=== PATIENT | female | born 1940 | race Caucasian/White ===

== ENCOUNTER 2017-03-23 07:52 | Day surgery (SDC) | payer OTHER ==
[~2017-03-23] VITALS: Ht 165.1 cm; Wt 79.8 kg
[~2017-03-23 07:52] MED LIST: ACYC800 PO; ALEN70 PO; AMLO5 PO; ASPI81EC PO; BETA.05TC TOP; CELE200 PO; CHOL10002 PO; CIPR500 PO; DILT30; DISO100ER PO; DOCU100 PO; DULO30 PO; DULO60 PO; Flagyl500 MG PO; HYDACE25S PR; HYDACE5 PO; L-LYSINE500 MG; LORA10ER PO; METO100ER PO; METO25ER PO; METO50 PO; MINO50 PO; Multiple Vitam1 EAC1 PO; Norco 5-325 Ta1 EACH PO; OMEP40CA12 PO; PRAV20 PO; PROM25 PO; Protonix40 M1 PO; RXCLIN PO; SERT50 PO; VICODIN 5-3001 EACH PO
== END 2017-03-23 10:40 | disposition home or self-care (01) ==
LOC: ORSCSDS 07:52
PROVIDERS: Internal Medicine Gastroenterology
PROC: 0DB68ZX Excision of Stomach, Via Natural or Artificial Opening Endoscopic, Diagnostic (ICD-10-PCS; principal; 2017-03-23 09:30)
DX: R93.3 Abnormal findings on diagnostic imaging of other parts of digestive tract (principal); K31.7 Polyp of stomach and duodenum; K26.9 Duodenal ulcer, unspecified as acute or chronic, without hemorrhage or perforation; K75.81 Nonalcoholic steatohepatitis (NASH); Z80.0 Family history of malignant neoplasm of digestive organs; I10 Essential (primary) hypertension; K21.9 Gastro-esophageal reflux disease without esophagitis; F41.8 Other specified anxiety disorders; E78.5 Hyperlipidemia, unspecified; Z79.82 Long term (current) use of aspirin; Z87.891 Personal history of nicotine dependence; Z79.899 Other long term (current) drug therapy
CPT/HCPCS: 88305; 88342; J7120

== ENCOUNTER → 2017-04-28 | Outpatient (CLI) | payer OTHER ==
[~2017-04-28] MED LIST changes: +Percocet 5-3251 EACH PO
[2017-04-29 17:50] LABS: Protein, Urine Quantitative 14.9 mg/dL (0.0-11.9)
== END ==
LOC: LAB 14:00
PROVIDERS: Internal Medicine Nephrology
DX: N18.3 Chronic kidney disease, stage 3 (moderate) (principal); D63.1 Anemia in chronic kidney disease; N25.81 Secondary hyperparathyroidism of renal origin; E55.9 Vitamin D deficiency, unspecified; E78.00 Pure hypercholesterolemia, unspecified; R76.9 Abnormal immunological finding in serum, unspecified; R94.5 Abnormal results of liver function studies
CPT/HCPCS: 81050; 82043; 84156

== ENCOUNTER 2017-07-06 08:00 | Day surgery (SDC) | payer OTHER ==
[~2017-07-06] VITALS: Ht 162.6 cm; Wt 84.1 kg
[~2017-07-06 08:00] MED LIST changes: -Percocet 5-3251 EACH PO
== END 2017-07-06 10:04 | disposition home or self-care (01) ==
LOC: ORSCSDS 08:00
PROVIDERS: Internal Medicine Gastroenterology
PROC: 0DJD8ZZ Inspection of Lower Intestinal Tract, Via Natural or Artificial Opening Endoscopic (ICD-10-PCS; principal; 2017-07-06 09:15)
DX: Z12.11 Encounter for screening for malignant neoplasm of colon (principal); K64.4 Residual hemorrhoidal skin tags; K64.8 Other hemorrhoids; Z80.0 Family history of malignant neoplasm of digestive organs; I10 Essential (primary) hypertension; E78.5 Hyperlipidemia, unspecified; F41.8 Other specified anxiety disorders; K75.81 Nonalcoholic steatohepatitis (NASH); E78.00 Pure hypercholesterolemia, unspecified; Z87.891 Personal history of nicotine dependence; Z79.82 Long term (current) use of aspirin; Z79.899 Other long term (current) drug therapy
CPT/HCPCS: J0330; J1980; J2405; J7120

== ENCOUNTER 2017-09-27 06:06 | Observation (INO) | payer OTHER ==
[~2017-09-27] VITALS: Ht 162.6 cm; Wt 87.1 kg
[2017-09-27 13:26] LABS: PCO2 Arterial 44.2 mmHg (35-45); PO2 Arterial 69.7 mmHg (80-100)
[2017-09-28 05:40] LABS: BASOPHILS ABSOLUTE AUTO 0.02 K/mm3 (0.00-0.23); BASOPHILS PERCENT AUTO 0 % (0-2); EOSINOPHILS ABSOLUTE AUTO 0.01 K/mm3 (0.00-0.68); EOSINOPHILS PERCENT AUTO 0 % (0-6); Hematocrit 38.7 % (33.0-51.0); Hemoglobin 12.9 g/dL (11.5-16.0); IMMATURE GRAN ABSOLUTE AUTO 0.04 K/mm3 (0.00-0.10); IMMATURE GRAN PERCENT AUTO 0 % (0-1); LYMPHOCYTES ABSOLUTE AUTO 2.76 K/mm3 (0.84-5.20); LYMPHOCYTES PERCENT AUTO 20 % (21-46); MONOCYTES ABSOLUTE AUTO 0.65 K/mm3 (0.16-1.47); MONOCYTES PERCENT AUTO 5 % (4-13); Mean Corpuscular HGB 30.6 pg (26.0-34.0); Mean Corpuscular HGB Conc 33.3 g/dL (31.5-36.5); Mean Corpuscular Volume 92 fL (80-100); Mean Platelet Volume 9.6 fL (9.1-12.4); NEUTROPHILS ABSOLUTE AUTO 10.11 K/mm3 (1.96-9.15); NEUTROPHILS PERCENT AUTO 74 % (41-73); Platelet Count 220 K/mm3 (150-400); RDW Coefficient Variation 12.8 % (11.7-14.2); RDW Standard Deviation 42.9 fL (35.1-46.3); Red Blood Cell Count 4.21 M/mm3 (3.80-5.20); White Blood Cell Count 13.59 K/mm3 (4.00-11.30)
[2017-09-28 06:02] LABS: Anion Gap 7 mmol/L (6-16); Blood Urea Nitrogen 15 mg/dL (8-24); Bun/Creatinine Ratio 20.6 (12.0-20.0); CO2, Blood 30 mmol/L (21-32); Calcium, Blood 9.2 mg/dL (8.5-10.1); Chloride, Blood 101 mmol/L (98-108); Creatinine, Blood 0.73 mg/dL (0.40-1.00); Glomerular Filtration Rate >60 (60-); Glucose, Blood 108 mg/dL (70-99); Potassium, Blood 4.2 mmol/L (3.5-5.5); Sodium, Blood 138 mmol/L (136-145)
[2017-09-28] MEDS ORDERED: Percocet 5-3251 EACH PO (08:06)
== END 2017-09-28 10:00 | disposition home or self-care (01) ==
LOC: ORSCSDS 06:06 → SURS 14:03 → ORSCSDS 14:03 → SURS 15:01
PROVIDERS: Anesthesiology; Hospitalist; Orthopaedic Surgery
PROC: 0RBJ4ZZ Excision of Right Shoulder Joint, Percutaneous Endoscopic Approach (ICD-10-PCS; principal; 2017-09-27 07:30)
PROC: 0RNJ4ZZ Release Right Shoulder Joint, Percutaneous Endoscopic Approach (ICD-10-PCS; principal; 2017-09-27 07:30)
DX: M75.111 Incomplete rotator cuff tear or rupture of right shoulder, not specified as traumatic (principal); M75.41 Impingement syndrome of right shoulder; M19.011 Primary osteoarthritis, right shoulder; M24.011 Loose body in right shoulder; E78.5 Hyperlipidemia, unspecified; I10 Essential (primary) hypertension; M81.0 Age-related osteoporosis without current pathological fracture; K21.9 Gastro-esophageal reflux disease without esophagitis; F32.9 Major depressive disorder, single episode, unspecified; F41.9 Anxiety disorder, unspecified; E66.9 Obesity, unspecified; E78.00 Pure hypercholesterolemia, unspecified; Z87.891 Personal history of nicotine dependence; Z88.0 Allergy status to penicillin; Z88.5 Allergy status to narcotic agent; Z88.8 Allergy status to other drugs, medicaments and biological substances; Z79.82 Long term (current) use of aspirin; Z79.899 Other long term (current) drug therapy
CPT/HCPCS: 36415; 36600; 71046; 80048; 82803; 85025; 94640; 94760; G0378; J0330; J1100; J2250; J2405; J2710; J3010; J3370; J7120

== ENCOUNTER 2018-04-27 21:17 | Emergency (ER) | payer OTHER ==
[~2018-04-27] VITALS: Ht 162.6 cm; Wt 86.2 kg
[~2018-04-27 21:17] MED LIST changes: +Percocet 5-3251 EACH PO
[2018-04-27 21:59] LABS: BASOPHILS PERCENT AUTO 1 % (0-2); EOSINOPHILS PERCENT AUTO 1 % (0-6); Hematocrit 45.9 % (33.0-51.0); Hemoglobin 15.2 g/dL (11.5-16.0); IMMATURE GRAN ABSOLUTE AUTO 0.05 K/mm3 (0.00-0.10); IMMATURE GRAN PERCENT AUTO 0 % (0-1); LYMPHOCYTES ABSOLUTE AUTO 3.99 K/mm3 (0.84-5.20); LYMPHOCYTES PERCENT AUTO 26 % (21-46); MONOCYTES ABSOLUTE AUTO 0.71 K/mm3 (0.16-1.47); MONOCYTES PERCENT AUTO 5 % (4-13); Mean Corpuscular HGB 30.3 pg (26.0-34.0); Mean Corpuscular HGB Conc 33.1 g/dL (31.5-36.5); Mean Corpuscular Volume 91 fL (80-100); Mean Platelet Volume 9.3 fL (9.1-12.4); NEUTROPHILS ABSOLUTE AUTO 10.47 K/mm3 (1.96-9.15); NEUTROPHILS PERCENT AUTO 68 % (41-73); Platelet Count 291 K/mm3 (150-400); RDW Coefficient Variation 13.2 % (11.7-14.2); RDW Standard Deviation 44.7 fL (35.1-46.3); Red Blood Cell Count 5.02 M/mm3 (3.80-5.20); White Blood Cell Count 15.42 K/mm3 (4.00-11.30)
[2018-04-27 22:22] LABS: Alanine Aminotransfer (ALT/SGP 19 U/L (12-78); Albumin, Blood 3.7 g/dL (3.4-5.0); Albumin/Globulin Ratio 0.9 (0.8-1.8); Alk Phos 100 U/L (50-136); Anion Gap 8 mmol/L (6-16); Aspartate Aminotrans (AST/SGOT 20 U/L (12-37); Bilirubin, Total 0.3 mg/dL (0.1-1.0); Blood Urea Nitrogen 23 mg/dL (8-24); CO2, Blood 25 mmol/L (21-32); Calcium, Blood 10.2 mg/dL (8.5-10.1); Chloride, Blood 105 mmol/L (98-108); Creatinine, Blood 0.82 mg/dL (0.40-1.00); Globulin, Blood 4.2 g/dL (2.2-4.0); Glomerular Filtration Rate >60 (60-); Glucose, Blood 146 mg/dL (70-99); Sodium, Blood 138 mmol/L (136-145); Total Protein, Blood 7.9 g/dL (6.4-8.2)
[2018-04-27 23:48] LABS: Source, Urine Clean Catch
[2018-04-27 23:51] LABS: Bilirubin, Urine Neg (Neg); Blood, Urine 5+ (Neg); Glucose Qualitative, Urine Neg (Neg); Ketones, Urine 1+ (Neg); Leukocyte Esterase, Urine 1+ (Neg); Nitrite, Urine Neg (Neg); Protein, Urine 1+ (Neg); Urobilinogen, Urine NORM (Normal)
[2018-04-27 23:56] LABS: Appearance, Urine Clear (Clear); Color, Urine Yellow (P-Yellow)
[2018-04-27 23:57] LABS: Amorphous Light ({null, 0-Heavy}); Bacteria Mod /hpf; Hyaline Casts 0-2 /lpf (0-2); Mucus Mod ({null, 0-Heavy}); Squamous Epithelial Cells Not Seen /hpf (Few); White Blood Cells, Urine 0-2 /hpf (0-5)
[2018-04-28] MEDS ORDERED: CEPH500 PO (01:15)
[2018-04-28] MEDS ORDERED: KETO10 PO (01:15)
[2018-04-28] MEDS ORDERED: Flomax0.4 MG PO (01:15)
== END 2018-04-28 01:48 | disposition home or self-care (01) ==
LOC: ER 21:17
PROVIDERS: Emergency Medicine
DX: N13.2 Hydronephrosis with renal and ureteral calculous obstruction (principal); N39.0 Urinary tract infection, site not specified; D72.829 Elevated white blood cell count, unspecified; Z88.1 Allergy status to other antibiotic agents; Z88.5 Allergy status to narcotic agent; Z88.8 Allergy status to other drugs, medicaments and biological substances; Z79.899 Other long term (current) drug therapy; Z79.82 Long term (current) use of aspirin; E78.5 Hyperlipidemia, unspecified; K21.9 Gastro-esophageal reflux disease without esophagitis; F32.9 Major depressive disorder, single episode, unspecified
CPT/HCPCS: 36415; 74176; 80053; 81001; 83690; 85025; 87086; 96374; 99284-25; J1885; P9612

== ENCOUNTER → 2019-04-03 | Outpatient (CLI) | payer OTHER ==
[~2019-04-03] MED LIST changes: +CEPH500 PO; +Flomax0.4 MG PO; +KETO10 PO
[2019-04-06 13:07] LABS: COMMENT: Comment: (.); M-SPIKE, % Not Observed % (Not Observed); PROTEIN,TOTAL,URINE 27.1 mg/dL (Not Estab.)
== END | disposition home or self-care (01) ==
LOC: LAB 14:00 → LAB SHORT 14:00 → EDSTATUS 02-28 11:40 → LAB FUT 02-28 11:40
PROVIDERS: Internal Medicine
DX: Z00.01 Encounter for general adult medical examination with abnormal findings (principal)
CPT/HCPCS: 81050; 84156; 84166

== ENCOUNTER → 2021-10-11 | Outpatient (CLI) | payer OTHER ==
[2021-10-13 20:12] LABS: Calcium, Urine 27.2 mg/dL (< 17.5)
== END | disposition home or self-care (01) ==
LOC: LAB 02:00 → LAB SHORT 02:00
PROVIDERS: Internal Medicine Endocrinology, Diabetes & Metabolism
DX: M81.0 Age-related osteoporosis without current pathological fracture (principal)
CPT/HCPCS: 81050; 82340; 82570

== ENCOUNTER 2022-05-21 09:30 | Day surgery (SDC) | payer OTHER ==
[~2022-05-21] VITALS: Ht 162.6 cm; Wt 68.9 kg
[~2022-05-21 09:30] MED LIST changes: -METO50 PO; +METO50ER PO; +PREG50 PO
--- NOTE | 2022-05-21 09:50 | NUR ---
SPOKE WITH YUMI IN PHARMACY ABOUT JON'S AMPICILLIN ALLERGY RELATIVE TO ANCEF ADMINISTRATION DURING DEVICE CHANGE-OUT CASE. YUMI RESEARCHED JAMEE'S ALLERGIC REACTION TO AMPICILLIN, WHICH IS NAUSEA AND CONFIRMED BY PATIENT "FLU LIKE SYMPTOMS." YUMI ARTICULATED SHOULD "NOT BE A PROBLEM" TO ADMINISTER ANCEF DURING PT'S CHANGE-OUT PROCEDURE TODAY.
[2022-05-21] MEDS ORDERED: CEPH500 PO ×2 (12:51→12:52)
--- NOTE | 2022-05-21 13:02 | NUR ---
PATIENT RETURNED FROM THE [facility] VIA RECLINER AND PLACED ON THE MONITOR AND CALL LIGHT IN REACH S/P GENERATOR CHANGE TO THE ICD. DAUGHTER AT THE BEDSIDE. VVS. NO SEDATION WAS GIVEN. CALLED IN ANTIBIOTIC SCRIPT TO VÍCTOR DAVIES. LUNCH SERVED AND PATIENT FEEDING SELF.
--- NOTE | 2022-05-21 13:56 | NUR ---
1340 PATIENT UP TO THE RESTROOM, OFF MONITOR. C/O SURGICAL SITE PAIN 09/28 AND GIVEN TYLENOL 650 MG PO.
--- NOTE | 2022-05-21 13:57 | NUR ---
REVIEWED DISCHARGE INSTRUCTIONS WITH THE PATIENT AND DAUGHTER INCLUDING FOLLOW UP APPOINTMENTS AND PRESCRIPTION FOR KEFLEX. COPIES GIVEN TO THE PATIENT AND ALL QUESTIONS ANSWERED. PATIENT DISCHARGED HOME VIA WHEELCHAIR TO DAUGHTER HEAD OF STORE OPERATIONS.
== END 2022-05-21 14:10 | disposition home or self-care (01) ==
LOC: MHTC 09:30
DX: Z45.02 Encounter for adjustment and management of automatic implantable cardiac defibrillator (principal); I42.2 Other hypertrophic cardiomyopathy; I10 Essential (primary) hypertension; I77.810 Thoracic aortic ectasia; I47.29 Other ventricular tachycardia; E78.5 Hyperlipidemia, unspecified; K21.9 Gastro-esophageal reflux disease without esophagitis
CPT/HCPCS: 33262; A9270; C1722; C1781; J0690; J1644; J7030; J7040

== ENCOUNTER 2022-07-23 10:57 | Day surgery (SDC) | payer OTHER ==
[~2022-07-23] VITALS: Ht 165.1 cm; Wt 66.0 kg
[2022-07-23 14:47] VITALS: BP 128/72
== END 2022-07-23 14:30 | disposition home or self-care (01) ==
LOC: ORSCSDS 10:57
PROVIDERS: Internal Medicine Gastroenterology
PROC: 0D758ZZ Dilation of Esophagus, Via Natural or Artificial Opening Endoscopic (ICD-10-PCS; principal; 2022-07-23 12:15)
PROC: 0DB78ZX Excision of Stomach, Pylorus, Via Natural or Artificial Opening Endoscopic, Diagnostic (ICD-10-PCS; principal; 2022-07-23 12:15)
DX: K21.9 Gastro-esophageal reflux disease without esophagitis (principal); R13.10 Dysphagia, unspecified; K31.7 Polyp of stomach and duodenum; D51.0 Vitamin B12 deficiency anemia due to intrinsic factor deficiency; K44.9 Diaphragmatic hernia without obstruction or gangrene; K22.89 Other specified disease of esophagus; Z87.891 Personal history of nicotine dependence; I10 Essential (primary) hypertension; E78.5 Hyperlipidemia, unspecified; Z79.899 Other long term (current) drug therapy
CPT/HCPCS: 88305; 88341; 88342; J2704; J7120

== ENCOUNTER 2024-12-22 07:39 | Day surgery (SDC) | payer OTHER ==
[2024-12-22 09:10] VITALS: BP 105/91
[2024-12-22] MEDS ORDERED: ATORVASTATIN CA20 MG PO (09:18)
[2024-12-22] MEDS ORDERED: Calcium Carbon500 MG PO (12:19)
[2024-12-22] MEDS ORDERED: ERGO400 PO (12:20)
[2024-12-22] MEDS ORDERED: ZOLEDRONIC4 MG/514 IV (12:22)
== END 2024-12-22 09:47 | disposition home or self-care (01) ==
LOC: ATC 07:39
DX: M81.0 Age-related osteoporosis without current pathological fracture (principal); I11.0 Hypertensive heart disease with heart failure; I50.9 Heart failure, unspecified; E78.5 Hyperlipidemia, unspecified; I70.0 Atherosclerosis of aorta; J43.9 Emphysema, unspecified; I47.10 Supraventricular tachycardia, unspecified; I42.1 Obstructive hypertrophic cardiomyopathy; K21.9 Gastro-esophageal reflux disease without esophagitis; Z87.891 Personal history of nicotine dependence; Z79.899 Other long term (current) drug therapy; Z88.0 Allergy status to penicillin; Z88.5 Allergy status to narcotic agent; Z88.8 Allergy status to other drugs, medicaments and biological substances; Z95.810 Presence of automatic (implantable) cardiac defibrillator
CPT/HCPCS: 96365; J3489